=== PATIENT | female | born 1975 | race Caucasian/White ===

== ENCOUNTER → 2025-03-24 10:22 | Outpatient (REF) | payer BC, SELFPAY | LOC: HWRCS 10:22 | PROVIDERS: ATTENDING PHYSICIAN Internal Medicine Cardiovascular Disease; FAMILY PHYSICIAN Family Medicine | DX: I10 Essential (primary) hypertension (principal) | CPT/HCPCS: 93306 ==

== ENCOUNTER 2025-05-31 02:35 | Inpatient (IN) | payer BC, SELFPAY ==
[2025-05-30 18:48] VITALS: BP 139/92
[2025-05-30 21:32] LABS: Hematocrit 40.1 % (37.0-47.0); Hemoglobin 13.3 g/dL (12.0-16.0); Mean Corp Hgb Conc. 33.2 g/dL (33.0-37.0); Mean Corpuscular Volume 90.7 fL (81.0-99.0); Nucleated Red Blood Cells % 0 %; Platelet Count 354 10^3/uL (130-400); Red Cell Dist. Width 13.1 % (11.5-14.5)
[2025-05-30 21:58] LABS: ALT (SGPT) 86 U/L (0-35); AST (SGOT) 59 U/L (14-36); Albumin 4.1 g/dl (3.5-5.0); Alkaline Phosphatase 157 U/L (38-126); Blood Urea Nitrogen 25 mg/dl (7-17); Calcium 9.6 mg/dl (8.4-10.2); Carbon Dioxide 28 mmol/L (22-30); Chloride 106 mmol/L (98-107); Glucose 93 mg/dl (70-99); Potassium 4.0 mmol/L (3.5-5.1); Sodium 140 mmol/L (135-145); Total Protein 6.9 g/dl (6.3-8.2); eGFR > 60.00
[2025-05-30 22:18] VITALS: BP 119/79
[2025-05-30 23:16] VITALS: BMI 22.6
[2025-05-30] MEDS: ROCEPHIN 2000 MG IV (23:20)
[2025-05-31] MEDS: VANCOCIN 530 MG IV (00:13)
--- NOTE | 2025-05-31 00:17 | ED.GENMED ---
History of Present Illness
General
Chief Complaint: Skin Problem
Source: patient
Exam Limitations: none
Time Seen by Provider: 05/30/25 22:35
Nursing documentation reviewed up to this point in time: agreed with
History of Present Illness
History of Present Illness:
Note:
CHIEF COMPLAINT(S)
Swelling and redness in the leg following recent onset of symptoms.
HISTORY OF PRESENT ILLNESS
The patient is a 49-year-old female presenting with swelling and redness in her leg that began to significantly worsen on Thursday. The patient initially perceived no issue, but noticed swelling over the weekend. She sought care at an urgent care
facility, where an X-ray was performed and did not reveal any abnormalities. The patient was prescribed doxycycline and has been on the medication for approximately 60 hours, with worsening of symptoms. Notably, the condition now includes more
tracking, which is a new development. The patient has a history of hardware in the affected area, which could be relevant to the current symptoms. No fever has been reported. There is concern for potential deep tissue involvement, including
osteomyelitis or infected prosthesis, necessitating further diagnostic imaging and evaluation. The patient expresses concern regarding the progression and response to current antibiotic therapy.
EXTERNAL RECORDS REVIEWED
The patient mentioned that X-rays were performed at an urgent care facility, which did not show any abnormalities at that time.
PHYSICAL EXAM
General: Alert, no acute distress.
Skin: Warm, dry.
Head: Normocephalic, atraumatic.
Neck: Supple, trachea midline.
Eye Ears, nose, mouth, and throat: Oral mucosa moist.
Cardiovascular: Normal peripheral perfusion, No edema.
Respiratory: Respirations are non-labored.
Gastrointestinal: Abdomen nondistended.
Back: Normal range of motion, Normal alignment.
Musculoskeletal: Normal range of motion, normal strength.
Neurological: Alert and oriented to person, place, time, and situation, No focal neurological deficit observed.
Psychiatric: Cooperative, appropriate mood & affect.
PLAN
1. Obtain an X-ray to assess for possible bone involvement and establish a baseline for future comparisons.
2. Conduct blood work to exclude systemic involvement.
3. Consider hospital admission for intravenous antibiotics due to the inadequate response to outpatient doxycycline therapy.
4. Discuss the possibility of prophylactic measures to prevent advancement to osteomyelitis or infected prosthesis.
5. Provided patient education on the importance of monitoring symptoms and the possibility of needing to remain in the hospital for observation and treatment.
DIFFERENTIAL DIAGNOSIS
The Differential Diagnosis includes, in no particular order and is not limited to:
1. Cellulitis.
2. Osteomyelitis. None seen on x-ray
3. Infected prosthesis.
4. Deep vein thrombosis.
5. Allergic reaction to a medication or other allergen.
6. Abscess formation.
7. Septic arthritis.
8. Gout.
9. Lymphedema.
10. Vascular insufficiency.
Disposition:
SUMMARY OF ENCOUNTER
A 49-year-old female with an orthopedic prosthesis in the left leg presented to the emergency department with cellulitis. The patient visited urgent care three days prior and was prescribed doxycycline. Due to worsening symptoms, she came to the
emergency department. Here, the wound was evaluated, and treatment was initiated with ceftriaxone and vancomycin. An X-ray of the affected foot was performed, which showed no obvious signs of osteomyelitis. The patient denies experiencing fever,
chills, nausea, or vomiting.
DISPOSITION
The patient is to be admitted to the hospital for further care.
INDEPENDENT REVIEW OF LABS AND INTERPRETATION OF TESTS
My independent interpretation of the foot X-ray shows no obvious osteomyelitis.
PATIENT EDUCATION AND COUNSELING
The patient was educated on the importance of close monitoring of symptoms, the potential progression of infection, and the need for hospital admission for intravenous antibiotics to manage the cellulitis effectively.
MEDICATION RECONCILIATION
The patient was started on ceftriaxone and vancomycin in the emergency department. The previous prescription of doxycycline was deemed inadequate due to symptom progression.
MEDICAL DECISION MAKING
- Complexity of Data Reviewed: Chronic conditions affecting care include orthopedic prosthesis and history of cellulitis. Differential diagnosis included cellulitis, osteomyelitis, and infected prosthesis.
- Data:
Category 1
External records reviewed: The patient mentioned that an X-ray was performed at an urgent care facility with no abnormalities noted.
X-ray of the foot independently reviewed in the emergency department with no obvious signs of osteomyelitis.
Category 3
Discussion of management with hospitalist team regarding the need for hospital admission to manage the infection with intravenous antibiotics.
- Risk:
Hospital admission was necessary due to the inadequate response to oral doxycycline and the potential for severe infection risk, including osteomyelitis or prosthetic infection.
DIAGNOSIS
Cellulitis, lower limb, with presence of orthopedic prosthesis (ICD-10: L03.115).
Past History
Past History
ED Past Medical History: Psychiatric (Bipolar) and Other (Migraine headaches, Kidney stones); Negative Asthma, HTN, Hypercholesterolemia or NIDDM
ED Past Surgical History: Gynecological
Social History
Tobacco: Non-smoker
Alcohol: None
Drug: None
Personal:
Living: with family
Employment: Employed
Family History
Family History: Other (Noncontributory)
Phy Exam
Physical Exam
Physical Exam:
.
Course
Orders/Labs/Results
Orders:
Orders
05/30/25 21:20
Complete Blood Count/With Diff Urgent
Comprehensive Metabolic Panel Urgent
Lactic Acid Urgent
05/30/25 22:55
Piperacillin/Tazo 4.5 Gram [Zosyn] 4.5 gram in 100 ml IV NOW
05/30/25 23:02
CefTRIAXone [Rocephin] 2,000 mg IV NOW STA
05/30/25 23:19
Sterile Water [Sterile Water For Injection] 20 ml .ROUTE .STK-MED
05/30/25 23:40
Vancomycin [Vancocin] 1,500 mg 0.9% Sodium Chloride 500 ml [Nss] 500 ml IV NOW
05/31/25 00:00
CR Foot - Left Min 3 Views Urgent
Reason For Exam: cellulitis above prosthetic
05/31/25 02:00
Piperacillin/Tazo 3.375 Gram [Zosyn] 3.375 gram in 50 ml IV Q6H
05/31/25 02:05
VANCOMYCIN Pharmacy to Dose [VANCOCIN Pharmacy to Dose] 1 each Pharmacy To Prepare [Call Pharmacy To Prepare] 0 ml IV PER PROTOCOL
05/31/25 02:07
HYDROmorphone [Dilaudid] 0.5 mg IV Q4HPRN PRN
05/31/25 02:18
Activity As Directed
Activity Level: With Assistance
05/31/25 02:19
Blood Culture Routine
MARCELLE Source: Blood/Venous
Specimen Description:
05/31/25 02:22
Consult Podiatry [PODIATRY CONSULT] Routine
Consulting Provider: Carlos Escamilla
Was physician already notified: No
Reason for consult: left foot cellulitis with hardware
05/31/25 02:24
Consult Infectious Disease [INFECTIOUS DISEASE CONSULT] Routine
Consulting Provider: Abbi Cruz
Was physician already notified: No
Reason for consult: Left foot cellulits with hardware
Consult Notification Routine
Specialty to Notify: Podiatry
05/31/25 02:25
Consult Notification Routine
Specialty to Notify: Infectious Disease
Nursing to Place Non Medication Order As Directed
Physician Order: Elevate LLE
Above order entered?: Yes
05/31/25 02:26
Admit Patient As Directed
Co-Sign Provider:
Level of Care: Inpatient admission
Assign to:: Medical/Surgical
Physician / Group: Dr Demarco
Diagnosis: left foot cellulitis
PRN Pain Medication Management As Directed
May give lesser potent ordered pain med per pt: Yes
preference::
Protocol:: Medication orders for pain may be administered in a
manner that supports deferring to patient preference
when the pt is:
- Requesting an ordered lesser potent pain medication.
Least to most potent pain medications are defined
as: acetaminophen < NSAID < tramadol < opioids
(morphine, oxycodone, hydromorphone).
- Requesting a lesser dose of the same medication IF
ORDERED.
- Requesting a less intrusive route of administration
if both routes are prescribed by the provider (PO <
IV).
05/31/25 02:32
Code Status As Directed
Resuscitation Status: Full Code
05/31/25 02:45
0.9% Sodium Chloride 1000 ml [Nss] 1,000 ml IV 100 mls/hr
05/31/25 03:00
Flush (0.9% Sodium Chloride) [Flush (Nss)] See Dose Instructions IV PER PROTOCOL
05/31/25 Breakfast
Regular
At Your Request: Full Participation
Does patient need a safe tray?: No
Basic Metabolic Panel IN AM
Complete Blood Count/No Diff IN AM
Erythrocyte Sed Rate IN AM
05/31/25 08:00
Non-Formulary Item See Dose Instructions PO DAILY
05/31/25 18:00
Enoxaparin Sodium [Lovenox] 40 mg SC QPM
Abnormal Lab Results
05/30/25
21:20
Absolute Neuts (auto) 6.6 H 10^3/uL
(1.4-6.5)
Absolute Monos (auto) 1.2 H 10^3/uL
(0.1-0.6)
Monocytes % 10.6 H %
(1.7-9.3)
BUN 25 H mg/dl
(7-17)
AST 59 H U/L
(14-36)
ALT 86 H U/L
(0-35)
Alkaline Phosphatase 157 H U/L
(38-126)
05/30/25 21:20
05/30/25 21:20
Vital Signs
Initial and Last Documented VS:
Initial Vital Signs
Temp Pulse Resp BP Pulse Ox
97.6 F 96 16 139/92 97
05/30/25 18:48 05/30/25 18:48 05/30/25 18:48 05/30/25 18:48 05/30/25 18:48
Last Documented Vital Signs
Temp Pulse Resp BP Pulse Ox
97.8 F 81 20 134/86 98
05/31/25 00:25 05/31/25 00:25 05/31/25 00:25 05/31/25 00:25 05/31/25 00:25
*Radiology
Radiology exam reviewed: preliminary read by ED provider (No obvious osteomyelitis)
*Pulse Oximetry
SaO2: 99
Oxygen Mode of Delivery: Room air
Patient hypoxic: no
*Critical Care Note
Total Time (30-74mins, 75-104mins- exclusive of procedures): Not Applicable
ED Attending Note
-
Portions of this chart may have been created with voice recognition software.� Occasional wrong word or��sound alike� substitutions may have occurred due to the inherent limitations of voice recognition software.
Discharge Plan
Departure
Patient Disposition: Admit
Date of Disposition: 05/31/25
Time of Disposition: 00:17
Admit to: Med/Surg
Presentation/result/management discussed w/ accepting MD/DO: Hospitalist
Condition: Fair
Discharge Problem:
Cellulitis
Interventions
Interventions:
*Risk Screen - Suicide Last Done: 05/30/25 18:52
*General Assessment Last Done: 05/30/25 22:21
*Neglect/Abuse Screening Last Done: 05/30/25 18:52
*ED- Fall Risk Assessment Last Done: 05/30/25 22:20
*ED COVID-19 Vaccine History Last Done: 05/30/25 22:20
*ED Influenza Vaccine History Last Done: 05/30/25 22:20
ED-Skin Assessment Last Done: 05/30/25 22:31
[2025-05-31 00:25] VITALS: BP 134/86
--- NOTE | 2025-05-31 00:51 | HPS.HSE ---
Family Physician
-
Family Physician: NOT KNOW UNKNOWN - PT DOES
Chief Complaint
-
L Foot Pain and Redness
History of Present Illness
Patient is a 49y F with PMH significant for migraines who presents to ED complaining of L foot pain, swelling and redness. Patient states that she wore new / different shoes about 2 weeks ago. This resulted in abrasion / superficial laceration
to the R great toe / dorsum. She had no other significant issues until this Thursday when she noted significant swelling, pain and redness in the L foot. She noted decreaed ROM in the R great toe and pain with walking / weight bearing. She was seen
at Urgent care on Thursday and started on PO doxycycline which she has been taking since that time. She has noted no interval improvement.
Patient denies any systemic complaints of fevers / chills, N/V/D, etc.
Patient is s/p 1st toe fusion with Dr. Escamilla in 2018 and has [address] in [address].
Medical History
Past Medical History
Past Medical History: Reports Other
Additional Past Medical History:
Migraines
ADHD
Past Surgical History: Reports Other
Additional Past Surgical History:
Bilateral Great Toe Fusions
Social History
Tobacco: Non-smoker
Alcohol: Occasional (rare)
Drug: None
Personal:
Living: With Family
Family History
Family History: CAD, Hypertension and Other (Thyroid Disease, Migraines)
Allergies / Home Medications
Allergies reflects when Allergies were last updated in [facility].
Home Medications with original date entered in [facility]
Allergy/Medication List:
Allergies
Allergy/AdvReac Type Severity Reaction Status Date / Time
No Known Allergies Allergy Verified 07/30/20 23:14
Home Medications
wzgxpbd-pprjiydhglaoc-dxhrgvuu 250 mg-250 mg-65 mg tablet (Excedrin Migraine) 1 tab PO PRN PRN migraine 04/30/20
clonazepam 2 mg tablet 1 - 2 mg PO HSPRN PRN Sleep 07/30/20
dextroamphetamine-amphetamine ER 15 mg 24hr capsule,extend release 30 mg PO BID 07/31/20
hydrocodone 5 mg-acetaminophen 325 mg tablet 1 ea PO PRN PRN migraines 07/31/20
brexpiprazole 3 mg tablet (Rexulti) 3 mg PO DAILY 05/30/25
ondansetron HCl 4 mg tablet 4 mg PO Q6H PRN Migraines 05/30/25
ubrogepant 100 mg tablet (Ubrelvy) 100 mg PO PRN PRN Onset migraine 05/30/25
Review of Systems
-
History Source: Patient
A 12 point ROS was completed and negative except as noted: Yes
Constitutional: Denies Fever or Chills
Respiratory: Denies Cough or Trouble Breathing
Cardiac: Denies Chest Pain or Palpitations
Abdomen/GI: Denies Abdominal Pain, Nausea, Vomiting or Diarrhea
Musculoskeletal: Reports Joint Pain, Joint Swelling, Edema and Other (Redness)
Psych: Denies Depression or Anxiety
Physical Exam
Vital Signs
Vital Signs
Temp Pulse Resp BP Pulse Ox
97.8 F 81 20 134/86 98
05/31/25 00:25 05/31/25 00:25 05/31/25 00:25 05/31/25 00:25 05/31/25 00:25
Physical Exam
General: Other (49y F in no distress.)
HEENT: Moist mucous membranes and PERRLA
Respiratory: Clear; No Wheezes, Rales or Rhonchi
Cardiac: S1/S2; No Murmur
Musculoskeletal: No Clubbing, No Cyanosis and Other (Small crusted lesion over the dorsum of the L great toe - no bleeding or discharge. Erythema over the dorsum of the foot extending proximally past the ankle. Pain with ROM.)
Neuro: AO x 3
Laboratory Results
-
05/30/25 21:20
05/30/25 21:20
Laboratory Results
Lactic Acid 1.7 mmol/L (0.7-2.0) 05/30/25:20
Total Bilirubin 0.4 mg/dl (0.2-1.3) 05/30/25 21:20
AST 59 U/L (14-36) H 05/30/25:20
ALT 86 U/L (0-35) H 05/30/25 21:20
Alkaline Phosphatase 157 U/L (38-126) H 05/30/25 21:20
Impression/Plan
-
A/P: Patient is a 49y F with PMH significant for migraines and prior b/l great toe fusion surgeries who presents to ED complaining of pain, swelling and redness in the L great toe since Thursday.
Left Great Toe Abrasion / Cellulitis
s/p L Great Toe Fusion with Retained Hardware
- Admit for further evaluation and treatment.
- Continue IV abx with Vanco / Zosyn for now.
- Pain control, supportive care.
- ID and Podiatry evaluations.
- Follow for clinical improvement.
- +/- MRI for further evaluation.
Migraines
ADHD
- Continue necessary home medications.
DVT Prophylaxis: Lovenox
Code Status: Full
--- NOTE | 2025-05-31 02:25 | DOWNTIME ---
There was a [employer] Downtime on 05/31/2025 from 0100 to 05/31/2025 at 0215. Downtime documentation of patient's care, including medication administrations, has been reconciled in the electronic record per guidelines. Refer to the
patient's paper chart under the miscellaneous tab to see printed paper medication records and downtime forms.
[2025-05-31] MEDS: NSS 1000 IV ×2 (02:40→12:58)
[2025-05-31] MEDS: ZOSYN 50 IV ×2 (02:41→08:32)
[2025-05-31 05:01] LABS: Hematocrit 36.7 % (37.0-47.0); Hemoglobin 12.2 g/dL (12.0-16.0); Mean Corp Hgb Conc. 33.2 g/dL (33.0-37.0); Mean Corpuscular Volume 90.6 fL (81.0-99.0); Platelet Count 326 10^3/uL (130-400); Red Cell Dist. Width 13.1 % (11.5-14.5)
[2025-05-31 05:30] LABS: Blood Urea Nitrogen 19 mg/dl (7-17); Calcium 8.9 mg/dl (8.4-10.2); Carbon Dioxide 25 mmol/L (22-30); Chloride 111 mmol/L (98-107); Estimated Creatinine Clearance 90 ml/min; Glucose 98 mg/dl (70-99); Potassium 4.2 mmol/L (3.5-5.1); Sodium 140 mmol/L (135-145); eGFR > 60.00
[2025-05-31] MEDS: DILAUDID 0.5 MG IV (06:48)
--- NOTE | 2025-05-31 07:27 | W.PN.HOSP.TC ---
Today's Communication/Plan
-
Discharge today
Assessment / Plan
Assessment / Plan
Physical Exam
General: Not in acute distress
HEENT: Moist mucous membranes
Respiratory: Clear to Auscultation Bilaterally
Cardiac: S1/S2; RRR
Musculoskeletal: No Cyanosis and Other (Small crusted lesion over the dorsum of the L great toe - no bleeding or discharge. Erythema over the dorsum of the foot extending proximally past the ankle. Pain with ROM.)
Neuro: AAO x 3
Assessment/Plan
49 y/o female with past medical history significant for migraines who presented to [facility] emergency room complaining of left foot pain, swelling and redness. Patient stated that she wore new/different shoes about 2 weeks prior to presentation. This
resulted in abrasion/superficial laceration to the right great toe/dorsum. She had no other significant issues until 05/26/25 when she noted significant swelling, pain and redness in the left foot. She noted decreased ROM in the right great toe and
pain with walking/weight bearing. She was seen at Urgent care on 05/28/25 and started on PO doxycycline which she has been taking since that time. She has noted no interval improvement. Patient denied any systemic complaints of fevers / chills,
N/V/D, etc. Patient is s/p 1st toe fusion with Dr. Escamilla in 2018 and has [address]
Presentation with pain, swelling and redness in the left great toe
Left Great Toe Abrasion / Cellulitis
s/p L Great Toe Fusion with Retained Hardware
- Pain control, supportive care.
- Follow for clinical improvement.
- On 05/31/25, I communicated with infectious disease physician Dr. Moise and he recommended that patient can be discharged on either continued Doxycycline, or Keflex 500 mg QID for an additional 7 days
Migraines
ADHD
- Continue necessary home medications.
DVT Prophylaxis: Lovenox
Code Status: Full
More than 30 minutes spent in discharge including
Final examination of the patient
Summarizing hospital stay
Instructions for continuing care to all relevant caregivers
Preparation of discharge records, prescriptions, and referral forms
Total time spent (in minutes): 41
Anticipated Discharge: Today
Subjective/Interval History
-
Date of Service: May 31, 2025
Patient was seen and examined. She had episode of acute Migraine with vomiting earlier, she said that she has had episodes like this before as outpatient, chronically.
Objective Data
-
Labs:
Laboratory Results
05/30/25 05/31/25
21:20 04:49
WBC 10.8 8.1
Hgb 13.3 12.2
Hct 40.1 36.7 L
Plt Count 354 326
Sodium 140 140
Potassium 4.0 4.2
Chloride 106 111 H
Carbon Dioxide 28 25
BUN 25 H 19 H
Creatinine 0.6 0.5 L
Glucose 93 98
Calcium 9.6 8.9
Total Bilirubin 0.4
AST 59 H
ALT 86 H
Alkaline Phosphatase 157 H
Vital Signs:
Vital Signs
Temp Pulse Resp BP Pulse Ox
97.8 F 81 20 134/86 98
05/31/25 00:25 05/31/25 00:25 05/31/25 00:25 05/31/25 00:25 05/31/25 04:32
[2025-05-31 08:44] VITALS: BP 94/57
--- NOTE | 2025-05-31 08:51 | PHA.VAN.IN ---
Assessment
- Assessment
Renal Function: Appears similar to baseline
Concomitant Antimicrobials: piperacillin/tazobactam
AUC Dosing Plan
- Dosing Variables
Dosing Weight (kg): 56
Dosing CrCl (ml/min): 90
Vd coefficient (L/kg): 0.7
- Empiric Dosing
Initial / Loading Dose: 1500mg - 05/31 00:13
Maintenance Regimen: Vanc 750mg Q12H starting at 1800
Estimated AUC (mcg*h/mL): 503
Estimated Peak (mcg*h/mL): 31.2
Estimated Trough (mcg/ml): 13.1
Estimated Half Life (H): 8.8
- Monitoring
No levels ordered at this time: consider levels in next few days
Pharmacokinetics Vancomycin I
- -
Patient Age: 49
Patient Sex: Female
Vancomycin Day #: 1
Indication: Skin And Soft Tissue
Requesting Provider: Dr. Demarco
Pertinent Antimicrobial Allergies:
NKDA
Height / Weight:
Height 5 ft 2 in
Actual Weight 56 kg
- Vital Signs / Lab Results
Temp Pulse Resp BP Pulse Ox
98.1 F 68 18 94/57 99
05/31/25 08:44 05/31/25 08:44 05/31/25 08:44 05/31/25 08:44 05/31/25 08:44
Lab Results - Hematology
05/30/25 05/31/25
21:20 04:49
WBC 10.8 8.1
Lab Results - Chemistry
05/30/25 05/31/25
21:20 04:49
BUN 25 H 19 H
Creatinine 0.6 0.5 L
Estimated Creat Clear 90
Albumin 4.1
05/30/25
21:20
Lactic Acid 1.7
--- NOTE | 2025-05-31 11:02 | CM ---
CM reviewed chart and met with patient at bedside
Lives in a 3 story home with and 2 drs, 19 and 22. 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
no DME
PCP Dr. Rick Butler
RX plan yes
[facility] [place]
no hx of VN no hx SNF
DCP is to return home ready.
CM will continue to follow up for dcp needs
[2025-05-31] MEDS: BENADRYL 25 MG IV (12:05)
--- NOTE | 2025-05-31 12:55 | CON.ID ---
Consultation
-
Date/Time Consultation Requested: 05/31/2025 0224
Date/Time Consultation Performed: 05/31/2025 1215
Requesting Provider: Dr. Demarco
Performing Provider: Dr. Moise
Reason for Consultation: Left lower extremity cellulitis
Chief Complaint / Past History
History of Present Illness
Nilda King is a 49-year-old female being evaluated at the request of Dr. Demarco in regards to left lower extremity cellulitis. History is obtained from chart review, along with patient interview.
The patient has significant past medical history and remote bilateral hallux surgery. She reports that she was in her usual state of health until several weeks ago when she recalls she wore a pair of shoes that she had not worn in quite some time
and she developed a blister on the left hallux.
5 days ago she developed pain in her left foot, which persisted over the next several days, with noted increased swelling and some erythema developing on the dorsum of the left hallux with some reported streaking up her distal leg. She was seen at
a local urgent care center where she was placed on doxycycline. Despite 4 doses the erythema did not resolve and she came to the emergency room for further evaluation. Here she was placed on empiric Zosyn and vancomycin. Infectious Diseases is
asked to comment upon further antimicrobial management.
Prior to admission she denies any fevers or chills, and has not had any here. She denies any groin pain. She denies any significant pain up her leg, and admits to only mild discomfort in her left hallux. She denies seeing any purulence in the
area. She notes that she came to the hospital at the advice of her family members who noted that her foot looked somewhat swollen and erythematous but she reports that she is on her feet all day.
Past History
Additional Past Medical History:
Migraines
HTN
Additional Past Surgical History:
Bilateral hallux surgery
Allergy History:
No Known Allergies Allergy (Verified 07/30/20 23:14)
Medications Reviewed: Yes
Current Antibiotics:
Vancomycin
Zosyn
Social History
Tobacco: Non-Smoker
Alcohol: None
Drug: None
Personal:
Living: With Family
Employment: Employed
Family History
Family History: Not Pertinent
Review of Systems
Vital Signs
Temp Pulse Resp BP Pulse Ox
98.1 F 68 18 94/57 99
05/31/25 08:44 05/31/25 08:44 05/31/25 08:44 05/31/25 08:44 05/31/25 08:44
Physical Exam
Physical Exam
Constitutional: No Acute Distress, Comfortable and Non-toxic
Eyes: No Conjunctival Hemorrhage and Sclera Anicteric
Cardiovascular: S1/S2; Negative S3/S4
Pulmonary: Clear; Negative Wheezes or Rales
Gastrointestinal: Soft and Tender
Skin: Other (Left foot with minimal erythema. No appreciable tracking. Dry subcentimeter crust dorsum of left hallux. No open wounds. No drainage.)
Neurological: Awake and Alert
Psychological: Calm
Lab / Diagnostic Study Results
05/31/25 04:49
05/31/25 04:49
Abs Immat Gran (auto) 0.0 10^3/uL (0-0.05) 05/30/25 21:20
Absolute Neuts (auto) 6.6 10^3/uL (1.4-6.5) H 05/30/25 21:20
Absolute Lymphs (auto) 2.9 10^3/uL (1.2-3.4) 05/30/25 21:20
Absolute Monos (auto) 1.2 10^3/uL (0.1-0.6) H 05/30/25 21:20
Absolute Basos (auto) 0.1 10^3/uL (0-0.2) 05/30/25 21:20
Immature Gran % 0.4 % (0-0.5) 05/30/25 21:20
Neutrophils % 61.3 % (42.2-75.2) 05/30/25 21:20
Lymphocytes % 26.8 % (20.5-51.1) 05/30/25 21:20
Monocytes % 10.6 % (1.7-9.3) H 05/30/25 21:20
Eosinophils % 0.1 % (0-6) 05/30/25 21:20
Basophils % 0.8 % (0-2) 05/30/25 21:20
ESR 17 mm/hour (0-20) 05/31/25 04:49
Lactic Acid 1.7 mmol/L (0.7-2.0) 05/30/25 21:20
Microbiology Results
Micro:
05/31/25 04:49 Blood Culture - Pending
Blood/Venous
Imaging:
05/31/2025 X-ray left foot: No osseous destructive changes to indicate acute osteomyelitis. No acute fracture or dislocation. Plate and screw arthrodesis of the first metatarsophalangeal joint. Soft tissue swelling about the medial forefoot.
Assessment / Plan
Left lower extremity cellulitis
History of left hallux blister secondary to ill fitting shoe
Migraines
HTN
Recommendations:
Counseled patient that improvement/resolution of erythema secondary to cellulitis can lag by several days. At this point in time there is minimal erythema and I believe her prior empiric therapy of doxycycline was appropriate.
No need for further IV antibiotics at this time.
Can D/C either to continue with prior course of doxycycline, or if there was GI intolerance, keflex 500 mg PO QID x 7 day.
Care Review
Plan reviewed with: Physician (Hospitalist)
[2025-05-31] MEDS: COMPAZINE 5 MG IV (12:58)
[2025-05-31] MEDS: ZOSYN IV (14:01)
[2025-05-31 15:32] VITALS: BP 148/93
== END 2025-05-31 15:42 | disposition home or self-care (01) | DRG 603 ==
LOC: ED 02:35
PROVIDERS: Emergency Medicine; ADMITTING PHYSICIAN Hospitalist; ATTENDING PHYSICIAN Hospitalist; EMERGENCY PHYSICIAN Student in an Organized Health Care Education/Training Program
DX: L03.116 Cellulitis of left lower limb (principal); I10 Essential (primary) hypertension; F90.9 Attention-deficit hyperactivity disorder, unspecified type; E11.9 Type 2 diabetes mellitus without complications; F31.9 Bipolar disorder, unspecified
CPT/HCPCS: 73630; 80048; 80053; 83605; 85025; 85027; 85652; 87040; 93005; 96361; 96365; 96367; 96375; 99284